=== PATIENT | male | born 1965 | race Caucasian/White ===

== ENCOUNTER 2018-03-09 16:37 | Emergency (ER) | payer OTHER ==
[~2018-03-09] VITALS: Ht 172.7 cm; Wt 78.0 kg
[2018-03-09 16:59] VITALS: BP 123/77; Ht 172.7 cm; Wt 78.0 kg
== END 2018-03-09 18:15 | disposition home or self-care (01) ==
LOC: ED 16:37
DX: S81.812D Laceration without foreign body, left lower leg, subsequent encounter (principal); Z48.02 Encounter for removal of sutures; X58.XXXD Exposure to other specified factors, subsequent encounter